=== PATIENT | female | born 1940 | race Caucasian/White ===

== ENCOUNTER 2023-03-13 16:35 | Inpatient (IN) | payer MEDICARE, OTHER ==
[2023-03-13 17:32] LABS: #Basophils 0.1 10x3/uL (0.0-0.2); #Eosinphils 0.1 10x3/uL (0.0-0.5); #Neutrophils 10.4 10x3/uL (1.5-8.4); %Basophils 0.5 % (0.0-2.0); %Eosinophils 0.9 % (0.0-6.0); %Lymphocytes 10.5 % (18.0-47.0); %Monocytes 7.7 % (0.0-10.0); %Neutrophils 79.8 % (40.0-75.0); Hematocrit 41.7 % (34.9-44.5); Hemoglobin 13.7 g/dL (12.0-15.5); Mean Corpuscular HGB CONC 32.9 g/dL (32.0-36.0); Mean Corpuscular Hemoglobin 29.5 pg (27.0-33.0); Mean Corpuscular Volume 89.7 fl (81.6-98.3); Mean Platelet Volume 8.5 fl (7.4-10.4); Platelet Count 453 10x3/uL (150-450); RBC Distribution Width 12.9 % (11.5-14.5); Red Blood Cell (RBC) Count 4.65 10x6/uL (3.90-5.03)
[2023-03-13 17:41] LABS: ALT (SGPT) 13 U/L (8-55); AST (SGOT) 16 U/L (5-34); Albumin 3.3 g/dL (3.4-4.8); Alkaline Phosphatase 74 U/L (40-110); Anion Gap 13 mmol/L (10-20); BUN (Urea Nitrogen) 23 mg/dL (9.8-20.1); Bilirubin, Total 0.4 mg/dL (0.2-1.2); Calc. Creatinine Clearance 0 mL/min (70-130); Calcium 8.6 mg/dL (7.8-10.44); Carbon Dioxide 25 mmol/L (23-31); Chloride 106 mmol/L (98-107); Estimated GFR 58; Globulin 3.3 g/dL (2.4-3.5); Glucose 111 mg/dL (83-110); Potassium 4.1 mmol/L (3.5-5.1); Protein, Total 6.6 g/dL (5.8-8.1); Sodium 140 mmol/L (136-145)
[2023-03-13 17:45] LABS: Troponin I 0.017 ng/mL (< 0.028)
[2023-03-13 18:03] LABS: SARS-CoV-2 NAA Rapid Test Not Detected (NotDetected)
[2023-03-13] MEDS ORDERED: Furosemide 40 MG (4 mL) VIAL ONE (19:22)
[2023-03-13 21:00] LABS: Bilirubin Neg (Negative); Blood, Urine Negative (Negative); Clarity Clear (Clear); Glucose, Urine (Dipstick) Normal (Negative); Ketone, Urine Negative (Negative); Leukocyte 100 (Negative); Nitrite Negative (Negative); Protein, Urine (Dipstick) Negative (Neg-Trace); Specific Gravity, Urine 1.015 (1.005-1.030); Urobilinogen Normal mg/dL (Less than 2)
[2023-03-13 21:21] LABS: Bacteria/HPF 2+ HPF (None Seen); CAUTI Indications for Culture Alt mental st,lethar; Mucous/LPF Rare LPF (<2+); RBC/HPF 0-3 HPF (0-3); Urine Culture Reflex No No
[2023-03-13] MEDS ORDERED: Senokot S 8.6-50 MG TAB PO PRN (23:55)
[2023-03-13] MEDS ORDERED: Calcium Carbonate 500 MG ChewTAB PO PRN (23:55)
[2023-03-13] MEDS ORDERED: Ondansetron PF 4 MG/2 ML Vial IVP PRN (23:55)
[2023-03-14] MEDS ORDERED: Metoprolol Tartrate 25 MG TAB PO SCH (01:30)
[2023-03-14 01:40] VITALS: BMI 27.4
[2023-03-14] MEDS: cefTRIAXone\\ROCEPHIN 1 GM in Sodium Chloride 0.9% 100 ML IVPB SCH (02:06)
[2023-03-14 04:04] LABS: Anion Gap 16 mmol/L (10-20); BUN (Urea Nitrogen) 20 mg/dL (9.8-20.1); Calc. Creatinine Clearance 63 mL/min (70-130); Calcium 8.7 mg/dL (7.8-10.44); Carbon Dioxide 22 mmol/L (23-31); Chloride 105 mmol/L (98-107); Estimated GFR 70; Glucose 99 mg/dL (83-110); Potassium 3.6 mmol/L (3.5-5.1); Sodium 139 mmol/L (136-145)
[2023-03-14 06:11] LABS: #Basophils 0.1 10x3/uL (0.0-0.2); #Eosinphils 0.1 10x3/uL (0.0-0.5); #Monocytes 1.1 10x3/uL (0.0-1.1); #Neutrophils 7.6 10x3/uL (1.5-8.4); %Basophils 0.5 % (0.0-2.0); %Eosinophils 1.1 % (0.0-6.0); %Lymphocytes 19.8 % (18.0-47.0); %Monocytes 9.7 % (0.0-10.0); %Neutrophils 68.5 % (40.0-75.0); Hematocrit 40.5 % (34.9-44.5); Hemoglobin 13.3 g/dL (12.0-15.5); Mean Corpuscular HGB CONC 32.8 g/dL (32.0-36.0); Mean Corpuscular Hemoglobin 29.9 pg (27.0-33.0); Platelet Count 394 10x3/uL (150-450); RBC Distribution Width 12.8 % (11.5-14.5); Red Blood Cell (RBC) Count 4.45 10x6/uL (3.90-5.03); White Blood Cell (WBC) Count 11.1 10x3/uL (3.5-10.5)
[2023-03-14] MEDS ORDERED: Thyroid 30 MG TAB PO SCH ×2 (08:30→09:00)
[2023-03-14] MEDS: Memantine 5 MG TAB PO SCH (08:33)
[2023-03-14] MEDS: Apixaban 5 MG TAB PO SCH ×2 (08:34→22:48)
[2023-03-14] MEDS: Famotidine 20 MG TAB PO SCH ×2 (08:34→22:48)
[2023-03-14] MEDS: Losartan 25 MG TAB PO SCH (08:34)
[2023-03-14] MEDS: Donepezil HCl 5 MG TAB PO SCH (22:48)
[2023-03-15] MEDS: cefTRIAXone\\ROCEPHIN 1 GM in Sodium Chloride 0.9% 100 ML IVPB SCH (01:11)
[2023-03-15] MEDS: Acetaminophen 325 MG TAB PO PRN (01:19)
[2023-03-15] MEDS: Thyroid 30 MG TAB PO SCH (07:45)
[2023-03-15 08:10] LABS: #Basophils 0.1 10x3/uL (0.0-0.2); #Eosinphils 0.2 10x3/uL (0.0-0.5); #Monocytes 0.9 10x3/uL (0.0-1.1); #Neutrophils 6.2 10x3/uL (1.5-8.4); %Basophils 0.5 % (0.0-2.0); %Eosinophils 2.1 % (0.0-6.0); %Lymphocytes 25.2 % (18.0-47.0); %Monocytes 8.8 % (0.0-10.0); %Neutrophils 63.1 % (40.0-75.0); Hematocrit 41.1 % (34.9-44.5); Hemoglobin 13.5 g/dL (12.0-15.5); Mean Corpuscular HGB CONC 32.8 g/dL (32.0-36.0); Mean Corpuscular Hemoglobin 29.8 pg (27.0-33.0); Mean Corpuscular Volume 90.7 fl (81.6-98.3); Mean Platelet Volume 8.7 fl (7.4-10.4); Platelet Count 357 10x3/uL (150-450); RBC Distribution Width 12.5 % (11.5-14.5); Red Blood Cell (RBC) Count 4.53 10x6/uL (3.90-5.03); White Blood Cell (WBC) Count 9.9 10x3/uL (3.5-10.5)
[2023-03-15 08:28] LABS: Anion Gap 10 mmol/L (10-20); BUN (Urea Nitrogen) 22 mg/dL (9.8-20.1); Calc. Creatinine Clearance 61 mL/min (70-130); Calcium 8.5 mg/dL (7.8-10.44); Carbon Dioxide 28 mmol/L (23-31); Chloride 103 mmol/L (98-107); Estimated GFR 67; Glucose 91 mg/dL (83-110); Potassium 3.7 mmol/L (3.5-5.1); Sodium 137 mmol/L (136-145)
[2023-03-15] MEDS: Famotidine 20 MG TAB PO SCH ×2 (09:45→20:53)
[2023-03-15] MEDS: Memantine 5 MG TAB PO SCH (09:46)
[2023-03-15] MEDS: Losartan 25 MG TAB PO SCH (09:46)
[2023-03-15] MEDS: Apixaban 5 MG TAB PO SCH ×2 (09:46→20:53)
[2023-03-15] MEDS: Donepezil HCl 5 MG TAB PO SCH (20:54)
[2023-03-16] MEDS: cefTRIAXone\\ROCEPHIN 1 GM in Sodium Chloride 0.9% 100 ML IVPB SCH (01:50)
[2023-03-16] MEDS: Acetaminophen 325 MG TAB PO PRN (03:13)
[2023-03-16 05:27] LABS: #Basophils 0.1 10x3/uL (0.0-0.2); #Eosinphils 0.3 10x3/uL (0.0-0.5); #Monocytes 0.7 10x3/uL (0.0-1.1); #Neutrophils 6.4 10x3/uL (1.5-8.4); %Basophils 0.5 % (0.0-2.0); %Eosinophils 3.3 % (0.0-6.0); %Lymphocytes 22.4 % (18.0-47.0); %Monocytes 7.6 % (0.0-10.0); %Neutrophils 65.7 % (40.0-75.0); Hematocrit 41.6 % (34.9-44.5); Hemoglobin 13.9 g/dL (12.0-15.5); Mean Corpuscular HGB CONC 33.4 g/dL (32.0-36.0); Mean Corpuscular Hemoglobin 29.6 pg (27.0-33.0); Mean Corpuscular Volume 88.5 fl (81.6-98.3); Mean Platelet Volume 8.6 fl (7.4-10.4); Platelet Count 363 10x3/uL (150-450); RBC Distribution Width 12.3 % (11.5-14.5); White Blood Cell (WBC) Count 9.7 10x3/uL (3.5-10.5)
[2023-03-16 05:43] LABS: Anion Gap 14 mmol/L (10-20); BUN (Urea Nitrogen) 24 mg/dL (9.8-20.1); Calc. Creatinine Clearance 65 mL/min (70-130); Calcium 8.8 mg/dL (7.8-10.44); Carbon Dioxide 25 mmol/L (23-31); Chloride 98 mmol/L (98-107); Estimated GFR 72; Glucose 95 mg/dL (83-110); Potassium 3.8 mmol/L (3.5-5.1); Sodium 133 mmol/L (136-145)
[2023-03-16] MEDS: Thyroid 30 MG TAB PO SCH (06:45)
[2023-03-16] MEDS: Losartan 25 MG TAB PO SCH (09:40)
[2023-03-16] MEDS: Famotidine 20 MG TAB PO SCH ×2 (09:40→20:50)
[2023-03-16] MEDS: Apixaban 5 MG TAB PO SCH ×2 (09:40→20:50)
[2023-03-16] MEDS: Memantine 5 MG TAB PO SCH (09:45)
[2023-03-16] MEDS: Donepezil HCl 5 MG TAB PO SCH (20:50)
[2023-03-17] MEDS: cefTRIAXone\\ROCEPHIN 1 GM in Sodium Chloride 0.9% 100 ML IVPB SCH (01:22)
[2023-03-17 04:26] LABS: #Eosinphils 0.3 10x3/uL (0.0-0.5); #Monocytes 0.7 10x3/uL (0.0-1.1); #Neutrophils 6.5 10x3/uL (1.5-8.4); %Basophils 0.4 % (0.0-2.0); %Eosinophils 2.9 % (0.0-6.0); %Lymphocytes 18.6 % (18.0-47.0); %Monocytes 7.9 % (0.0-10.0); %Neutrophils 69.8 % (40.0-75.0); Hematocrit 40.8 % (34.9-44.5); Hemoglobin 13.6 g/dL (12.0-15.5); Mean Corpuscular HGB CONC 33.3 g/dL (32.0-36.0); Mean Corpuscular Hemoglobin 29.3 pg (27.0-33.0); Mean Corpuscular Volume 87.9 fl (81.6-98.3); Mean Platelet Volume 8.8 fl (7.4-10.4); Platelet Count 413 10x3/uL (150-450); RBC Distribution Width 12.4 % (11.5-14.5); Red Blood Cell (RBC) Count 4.64 10x6/uL (3.90-5.03); White Blood Cell (WBC) Count 9.3 10x3/uL (3.5-10.5)
[2023-03-17 04:35] LABS: Anion Gap 14 mmol/L (10-20); BUN (Urea Nitrogen) 25 mg/dL (9.8-20.1); Calc. Creatinine Clearance 64 mL/min (70-130); Calcium 8.6 mg/dL (7.8-10.44); Carbon Dioxide 24 mmol/L (23-31); Chloride 99 mmol/L (98-107); Estimated GFR 71; Glucose 100 mg/dL (83-110); Potassium 4.3 mmol/L (3.5-5.1); Sodium 133 mmol/L (136-145)
[2023-03-17] MEDS ORDERED: Losartan 25 MG TAB PO SCH (09:30)
[2023-03-17] MEDS: Memantine 5 MG TAB PO SCH (09:57)
[2023-03-17] MEDS: Apixaban 5 MG TAB PO SCH ×2 (09:57→21:55)
[2023-03-17] MEDS: Famotidine 20 MG TAB PO SCH ×2 (09:57→21:55)
[2023-03-17] MEDS: Losartan 25 MG TAB PO SCH ×2 (09:57→10:52)
[2023-03-17] MEDS: Thyroid 30 MG TAB PO SCH (09:57)
[2023-03-17] MEDS: Donepezil HCl 5 MG TAB PO SCH (21:55)
[2023-03-18] MEDS: Thyroid 30 MG TAB PO SCH (07:39)
[2023-03-18 08:13] LABS: Bilirubin Neg (Negative); Blood, Urine 10 (Negative); Clarity Clear (Clear); Glucose, Urine (Dipstick) Normal (Negative); Ketone, Urine Negative (Negative); Leukocyte Negative (Negative); Nitrite Negative (Negative); Protein, Urine (Dipstick) Negative (Neg-Trace); Urobilinogen Normal mg/dL (Less than 2)
[2023-03-18 08:28] LABS: Bacteria/HPF None Seen HPF (None Seen); CAUTI Indications for Culture Dysuria,urgency,freq; RBC/HPF None Seen HPF (0-3); Squamous Epithelial 0-3 HPF (0-3); Urine Culture Reflex No No; WBC/HPF None Seen HPF (0-3)
[2023-03-18] MEDS: Losartan 25 MG TAB PO SCH (09:43)
[2023-03-18] MEDS: Famotidine 20 MG TAB PO SCH ×2 (09:43→22:01)
[2023-03-18] MEDS: Apixaban 5 MG TAB PO SCH ×2 (09:43→22:01)
[2023-03-18] MEDS: Memantine 5 MG TAB PO SCH (09:43)
[2023-03-18] MEDS ORDERED: Losartan 50 MG TAB PO SCH (16:00)
[2023-03-18] MEDS: Donepezil HCl 5 MG TAB PO SCH (22:02)
[2023-03-19] MEDS: Apixaban 5 MG TAB PO SCH ×2 (09:31→21:31)
[2023-03-19] MEDS: hydrALAZINE 25 MG TAB PO SCH ×3 (09:31→21:25)
[2023-03-19] MEDS: Thyroid 30 MG TAB PO SCH (09:32)
[2023-03-19] MEDS: Famotidine 20 MG TAB PO SCH ×2 (09:32→21:25)
[2023-03-19] MEDS: Losartan 50 MG TAB PO SCH (09:32)
[2023-03-19] MEDS: Memantine 5 MG TAB PO SCH (09:34)
[2023-03-19] MEDS: Donepezil HCl 5 MG TAB PO SCH (21:25)
[2023-03-20 04:41] LABS: #Basophils 0.1 10x3/uL (0.0-0.2); #Eosinphils 0.2 10x3/uL (0.0-0.5); #Monocytes 0.9 10x3/uL (0.0-1.1); #Neutrophils 6.7 10x3/uL (1.5-8.4); %Basophils 0.6 % (0.0-2.0); %Eosinophils 2.2 % (0.0-6.0); %Lymphocytes 17.5 % (18.0-47.0); %Monocytes 9.4 % (0.0-10.0); %Neutrophils 69.9 % (40.0-75.0); Hematocrit 41.2 % (34.9-44.5); Hemoglobin 13.9 g/dL (12.0-15.5); Mean Corpuscular HGB CONC 33.7 g/dL (32.0-36.0); Mean Corpuscular Hemoglobin 29.7 pg (27.0-33.0); Mean Platelet Volume 8.4 fl (7.4-10.4); Platelet Count 460 10x3/uL (150-450); RBC Distribution Width 12.9 % (11.5-14.5); Red Blood Cell (RBC) Count 4.68 10x6/uL (3.90-5.03); White Blood Cell (WBC) Count 9.6 10x3/uL (3.5-10.5)
[2023-03-20 04:42] LABS: Anion Gap 11 mmol/L (10-20); BUN (Urea Nitrogen) 22 mg/dL (9.8-20.1); Calc. Creatinine Clearance 66 mL/min (70-130); Calcium 8.9 mg/dL (7.8-10.44); Carbon Dioxide 24 mmol/L (23-31); Chloride 103 mmol/L (98-107); Estimated GFR 74; Glucose 94 mg/dL (83-110); Sodium 134 mmol/L (136-145)
[2023-03-20] MEDS: Apixaban 5 MG TAB PO SCH (08:32)
[2023-03-20] MEDS: Losartan 50 MG TAB PO SCH (08:32)
[2023-03-20] MEDS: Thyroid 30 MG TAB PO SCH (08:32)
[2023-03-20] MEDS: Famotidine 20 MG TAB PO SCH (08:32)
[2023-03-20] MEDS: hydrALAZINE 25 MG TAB PO SCH (08:41)
[2023-03-20] MEDS: Memantine 5 MG TAB PO SCH (08:41)
[2023-03-20 11:57] VITALS: BP 131/96; TEMP 97.8
== END 2023-03-20 14:40 | DRG 556 ==
LOC: CSHERS 16:35 → CSHTELE 23:40 → OBSVTOIN 03-15 14:35
PROVIDERS: ADMIT Student in an Organized Health Care Education/Training Program; ATTEND Family Medicine
DX: M79.89 Other specified soft tissue disorders (principal); N39.0 Urinary tract infection, site not specified; I48.20 Chronic atrial fibrillation, unspecified; R53.1 Weakness; D72.829 Elevated white blood cell count, unspecified; Z66 Do not resuscitate; F03.90 Unspecified dementia, unspecified severity, without behavioral disturbance, psychotic disturbance, mood disturbance, and anxiety; I10 Essential (primary) hypertension; E03.9 Hypothyroidism, unspecified; R79.89 Other specified abnormal findings of blood chemistry; R60.0 Localized edema; Z88.0 Allergy status to penicillin; Z88.2 Allergy status to sulfonamides; Z88.8 Allergy status to other drugs, medicaments and biological substances; Z90.710 Acquired absence of both cervix and uterus; Z11.52 Encounter for screening for COVID-19
CPT/HCPCS: 36415; 71045; 80048; 80053; 81001; 83605; 83880; 84443; 84484; 85025; 87040; 87086; 93005; 93306; 93970; 96374; 96376; G0378; J0696; J1940; J3490